=== PATIENT | male | born 1965 | race African-American/Black ===

== ENCOUNTER → 2019-04-14 | Outpatient (CLI) | payer OTHER ==
--- NOTE | 2019-04-14 15:54 | RAD ---
EXAM: Chest, 2 views. HISTORY: Chest pain. COMPARISON: None. FINDINGS: 2 views of the chest are obtained. There is no infiltrate, pleural effusion or pneumothorax. The heart is normal in size. IMPRESSION: No acute pulmonary finding. Electronically signed by: Dorothy Friedman MD (04/14/2019 3:51 PM) [email or web address]
--- NOTE | 2019-04-14 15:54 | RAD ---
EXAM: Lumbar spine, 3 views. HISTORY: Pain. COMPARISON: None. FINDINGS: 3 views of the lumbar spine are obtained. There is a transitional lumbosacral segment, considered a partially sacralized L5 segment for this dictation. There is grade 1 anterolisthesis of L4 and L5. There is a rudimentary disc at L5-S1. There is multilevel endplate remodeling. There are few endplate Schmorl's nodes. There is facet arthropathy predominantly at L4-L5. There is subchondral sclerosis involving the sacroiliac joints. IMPRESSION: 1. Multilevel degenerative change involving the lumbar spine. 2. Transitional lumbosacral segment, a normal variant. 3. Grade 1 anterolisthesis of L4 and L5. Electronically signed by: Dorothy Friedman MD (04/14/2019 3:51 PM) [email or web address]
== END | disposition home or self-care (01) ==
LOC: RAD 13:04
PROVIDERS: ATTEND Nurse Practitioner Adult Health
DX: M47.816 Spondylosis without myelopathy or radiculopathy, lumbar region (principal); M51.46 Schmorl's nodes, lumbar region; R05 Cough; Q76.49 Other congenital malformations of spine, not associated with scoliosis
CPT/HCPCS: 71046; 72100

== ENCOUNTER → 2019-04-25 | Outpatient (CLI) | payer OTHER ==
--- NOTE | 2019-04-25 12:48 | RAD ---
EXAM: Bilateral lower extremity venous Doppler sonogram. HISTORY: Pain and swelling. TECHNIQUE: Magdaleno scale and color Doppler sonographic evaluation of the bilateral lower extremity veins with spectral waveform analysis was performed. FINDINGS: There is normal color flow, normal compressibility and there are normal spectral waveforms in the common femoral, superficial femoral, popliteal, posterior tibial and greater saphenous veins. IMPRESSION: No Doppler evidence of lower extremity deep venous thrombosis. Electronically signed by: Dorothy Friedman MD (04/25/2019 12:45 PM) [id number]
== END | disposition home or self-care (01) ==
LOC: US 09:22
PROVIDERS: ATTEND Nurse Practitioner Adult Health
DX: R22.43 Localized swelling, mass and lump, lower limb, bilateral (principal); R20.2 Paresthesia of skin; M54.9 Dorsalgia, unspecified; M51.36 Other intervertebral disc degeneration, lumbar region; M43.16 Spondylolisthesis, lumbar region; R94.4 Abnormal results of kidney function studies; R35.1 Nocturia; Z68.42 Body mass index [BMI] 45.0-49.9, adult
CPT/HCPCS: 93970